=== PATIENT | female | born 1980 | race Caucasian/White ===

== ENCOUNTER 2016-05-06 22:39 | Emergency (ER) | payer SELFPAY ==
[2016-05-06] MEDS ORDERED: IBUPROFEN 600 MG TABLET PO ONE (23:23)
[2016-05-06] MEDS ORDERED: DEXAMETHASONE 4 MG TABLET PO ONE (23:37)
[2016-05-06] MEDS ORDERED: RACEPINEPHRINE HCL 2.25% NEB 0.5 ML AMPUL NEB ONE (23:37)
--- NOTE | 2016-05-06 23:39 | ER Document Report ---
ED General - General Chief Complaint: Sore Throat Stated Complaint: SORE THROAT Notes: Patient is a 35-year-old female past medical history of asthma who presents with 2 days of sore throat, laryngitis, and a feeling that her throat is swelling. States that she was working tonight at a [employer] and after the event completed she felt like she was having increasing swelling in the back of her throat. This did not respond home nebulizer treatments. Nothing worsens or symptoms. States she has not had similar symptoms in the past. Denies any respiratory distress, difficulty swallowing secretions, syncope, or difficulty breathing. Multiple sick contacts with similar upper respiratory symptoms. She has not seen her primary care physician regarding today's concerns. TRAVEL OUTSIDE OF THE [place] IN LAST 30 DAYS: No - Related Data Allergies/Adverse Reactions: seafood Allergy (Severe, Uncoded 07/16/13 20:55) tongue swelling Past Medical History - General Information source: Patient - Social History Smoking Status: Never Smoker Chew tobacco use (# tins/day): No Frequency of alcohol use: None Drug Abuse: None Lives with: Spouse/Significant other Family History: Reviewed & Not Pertinent, Other - COPD Patient has suicidal ideation: No Patient has homicidal ideation: No - Past Medical History Cardiac Medical History: Reports: Hx Hypertension Renal/ Medical History: Denies: Hx Peritoneal Dialysis Psychiatric Medical History: Reports: Hx Bipolar Disorder Past Surgical History: Reports: Hx Section - Immunizations Hx Diphtheria, Pertussis, Tetanus Vaccination: Yes Review of Systems - Review of Systems Notes: Constitutional: Negative for fever. HENT: Positive for sore throat. Eyes: Negative for visual changes. Cardiovascular: Negative for chest pain. Respiratory: Negative for shortness of breath. Gastrointestinal: Negative for abdominal pain, vomiting or diarrhea. Genitourinary: Negative for dysuria. Musculoskeletal: Negative for back pain. Skin: Negative for rash. Neurological: Negative for headaches, weakness or numbness. 10 point ROS negative except as marked above and in HPI. Physical Exam - Vital signs Vitals: Temp Pulse Resp BP Pulse Ox 98.3 F 106 H 20 147/88 H 97 05/06/16 22:58 05/06/16 22:58 05/06/16 22:58 05/06/16 22:58 05/06/16 22:58 Interpretation: Hypertensive, Tachycardic Notes: PHYSICAL EXAMINATION: GENERAL: Well-appearing, well-nourished and in no acute distress. HEAD: Atraumatic, normocephalic. EYES: Pupils equal round and reactive to light, extraocular movements intact, sclera anicteric, conjunctiva are normal. ENT: nares patent, oropharynx clear without exudates. Moist mucous membranes. NECK: Normal range of motion, supple without lymphadenopathy LUNGS: Breath sounds clear to auscultation bilaterally and equal. No wheezes rales or rhonchi. HEART: Regular rate and rhythm without murmurs ABDOMEN: Soft, nontender, normoactive bowel sounds. No guarding, no rebound. No masses appreciated. EXTREMITIES: Normal range of motion, no pitting or edema. No cyanosis. NEUROLOGICAL: No focal neurological deficits. Moves all extremities spontaneously and on command. PSYCH: Normal mood, normal affect. SKIN: Warm, Dry, normal turgor, no rashes or lesions noted. Course - Re-evaluation Re-evalutation: 05/06/16 23:38 Presentation is most consistent with a viral upper respiratory infection. Patient is overall well appearance, vitals within normal limits, well-hydrated. Patient denies any headache, neck pain, and has no evidence of meningismus on examination. Lungs are clear bilaterally. No evidence of respiratory distress. No stridor. Retropharynx is mildly erythematous. Based on clinical exam and history, I do not suspect an acute pneumonia, meningitis, or an acute encephalitis. Strep pharyngitis testing has been obtained and awaiting results. Will give a dose of Decadron and racemic epinephrine neb given patient 's sensation of throat swelling although again there is no clinical evidence of this. Her history and exam is most consistent with an upper respiratory infection with an associated laryngitis. Do not suspect a retropharyngeal abscess, Shayne angina, or peritonsillar abscess. 05/07/16 00:21 Rapid strep is negative. Patient's vitals remained within normal limits. She remains without any stridor, retractions or distress.At this time will discharge with return precautions and follow-up recommendations. Verbal discharge instructions given a the bedside and opportunity for questions given. Medication warnings reviewed. Patient is in agreement with this plan and has verbalized understanding of return precautions and the need for primary care follow-up in the next 24-72 hours. - Vital Signs Vital signs: Temp Pulse Resp BP Pulse Ox 98.7 F 82 16 123/84 97 05/07/16 00:37 05/07/16 00:37 05/07/16 00:37 05/07/16 00:37 05/07/16 00:37 Discharge - Discharge Clinical Impression: Upper respiratory infection Qualifiers: URI type: unspecified URI Qualified Code(s): J06.9 - Acute upper respiratory infection, unspecified Condition: Good Disposition: HOME, SELF-CARE Instructions: Upper Respiratory Illness ([facility]) Additional Instructions: Your symptoms are most likely due to a viral infection it should resolve over the next 7-14 days. You should take [id number] guanfacine per bottle instructions to help thin the mucus. For nasal congestion: I would recommend that you get [id number] oxymetazoline also known is afrin. Use only per bottle instructions and be sure to never use this for more than 3 days if you can develop severe rebound congestion. You may also use tylenol or ibuprofen as needed for aches and thorat discomfort. Please be sure to drink plenty of fluids and get rest. Return to the emergency department he began having difficulty breathing, chest pain, persistent vomiting, or any other symptoms that are concerning to you. Prescriptions: Albuterol Sulfate [Proair HFA Inhalation Aerosol 8.5 gm MDI] 2 puff IH Q4H PRN # 1 mdi PRN Reason: Ipratropium/Albuterol Sulfate [Duoneb 3 ml Ampul] 3 ml NEB NOW #30 vial.neb
[2016-05-07 00:38] VITALS: BP 123/84
== END 2016-05-07 00:37 | disposition home or self-care (01) ==
LOC: ER 22:39
DX: J06.9 Acute upper respiratory infection, unspecified (principal); J02.9 Acute pharyngitis, unspecified
CPT/HCPCS: 87070; 87880; 99283

== ENCOUNTER 2016-05-10 10:29 | Emergency (ER) | payer SELFPAY ==
[2016-05-10 10:34] VITALS: BP 150/85
--- NOTE | 2016-05-10 10:50 | ER Document Report ---
ED Medical Screen (RME) - General Stated Complaint: SORE THROAT, COUGH Notes: 35 yo female c/o URI s/s. requesting work note and refill on albuterol. no fever. + sore throat and cough TRAVEL OUTSIDE OF THE [place] IN LAST 30 DAYS: No - Related Data Allergies/Adverse Reactions: seafood Allergy (Severe, Uncoded 07/16/13 20:55) tongue swelling Past Medical History - Social History Family history: Hypertension - Past Medical History Cardiac Medical History: Reports: Hx Hypertension Renal/ Medical History: Denies: Hx Peritoneal Dialysis Psychiatric Medical History: Reports: Hx Bipolar Disorder Past Surgical History: Reports: Hx Section - Immunizations Hx Diphtheria, Pertussis, Tetanus Vaccination: Yes Physical Exam - Vital signs Vitals: Temp Pulse Resp BP Pulse Ox 98.2 F 71 18 150/85 H 95 05/10/16 10:34 05/10/16 10:34 05/10/16 10:34 05/10/16 10:34 05/10/16 10:34 Course - Vital Signs Vital signs: Temp Pulse Resp BP Pulse Ox 98.2 F 71 18 150/85 H 95 05/10/16 10:34 05/10/16 10:34 05/10/16 10:34 05/10/16 10:34 05/10/16 10:34
[2016-05-10] MEDS ORDERED: DEXAMETHASONE 4 MG TABLET PO ONE (11:19)
--- NOTE | 2016-05-10 11:21 | ER Document Report ---
ED Flu Like - General Chief Complaint: Cough Stated Complaint: SORE THROAT, COUGH Notes: The patient is a 35-year-old female, past medical history asthma, presents with 5 days of rhinorrhea, dry cough and hoarse voice. She was seen in the emergency room 4 days ago and given Decadron and racemic epi with relief her symptoms. She is using her DuoNeb's and is requesting a refill of her albuterol. In addition, she is requesting a work note for this week. Denies shortness of breath, sputum, chest pain, leg swelling, rash, recent travel, fevers, nausea, vomiting or abdominal pain. TRAVEL OUTSIDE OF THE [place] IN LAST 30 DAYS: No - Related Data Allergies/Adverse Reactions: prednisone Allergy (Verified 05/10/16 10:49) seafood Allergy (Severe, Uncoded 05/10/16 10:48) tongue swelling Past Medical History - General Information source: Patient - Social History Smoking Status: Never Smoker Chew tobacco use (# tins/day): No Frequency of alcohol use: None Drug Abuse: None Family History: Reviewed & Not Pertinent, Other - COPD Patient has suicidal ideation: No Patient has homicidal ideation: No - Past Medical History Cardiac Medical History: Reports: Hx Hypertension Renal/ Medical History: Denies: Hx Peritoneal Dialysis Psychiatric Medical History: Reports: Hx Bipolar Disorder Past Surgical History: Reports: Hx Section - Immunizations Hx Diphtheria, Pertussis, Tetanus Vaccination: Yes Review of Systems - Review of Systems Notes: REVIEW OF SYSTEMS: CONSTITUTIONAL: -fevers, -chills EENT: -eye pain, -difficulty swallowing, +nasal congestion CARDIOVASCULAR:-chest pain, -syncope. RESPIRATORY: +cough, -SOB GASTROINTESTINAL: -abdominal pain, -nausea, -vomiting, -diarrhea GENITOURINARY: -dysuria, -hematuria MUSCULOSKELETAL: -back pain, -neck pain SKIN: -rash or skin lesions. HEMATOLOGIC: -easy bruising or bleeding. LYMPHATIC: -swollen, enlarged glands. NEUROLOGICAL: -altered mental status or loss of consciousness, -headache, - neurologic symptoms PSYCHIATRIC: -anxiety, -depression. ALL OTHER SYSTEMS REVIEWED AND NEGATIVE. Physical Exam - Vital signs Vitals: Temp Pulse Resp BP Pulse Ox 98.2 F 71 18 150/85 H 95 05/10/16 10:34 05/10/16 10:34 05/10/16 10:34 05/10/16 10:34 05/10/16 10:34 - Notes Notes: PHYSICAL EXAMINATION: GENERAL: Well-appearing, well-nourished and in no acute distress. HEAD: Atraumatic, normocephalic. EYES: Pupils equal round and reactive to light, extraocular movements intact, sclera anicteric, conjunctiva are normal. ENT: nares patent, oropharynx clear without exudates. Moist mucous membranes. NECK: Normal range of motion, supple without lymphadenopathy LUNGS: Breath sounds clear to auscultation bilaterally and equal. No wheezes rales or rhonchi. HEART: Regular rate and rhythm without murmurs ABDOMEN: Soft, nontender, normoactive bowel sounds. No guarding, no rebound. No masses appreciated. EXTREMITIES: Normal range of motion, no pitting or edema. No cyanosis. NEUROLOGICAL: Cranial nerves grossly intact. Normal speech, normal gait. Normal sensory, motor, and reflex exams. PSYCH: Normal mood, normal affect. SKIN: Warm, Dry, normal turgor, no rashes or lesions noted. Course - Re-evaluation Re-evalutation: Patient is requesting another dose of Decadron and a refill of her albuterol. No respiratory distress. Patient appears to have a URI. Will have her follow- up with her primary care physician. - Vital Signs Vital signs: Temp Pulse Resp BP Pulse Ox 98.2 F 71 18 150/85 H 95 05/10/16 10:34 05/10/16 10:34 05/10/16 10:34 05/10/16 10:34 05/10/16 10:34 Discharge - Discharge Clinical Impression: Upper respiratory tract infection Qualifiers: URI type: unspecified URI Qualified Code(s): J06.9 - Acute upper respiratory infection, unspecified Condition: Good Disposition: HOME, SELF-CARE Additional Instructions: You were given Decadron and racemic epinephrine your last visit. You were given another dose of Decadron today. UPPER RESPIRATORY ILLNESS: You have a viral infection of the respiratory passages -- a "cold." This common infection causes nasal congestion, drainage, and often sore throat and cough. It is highly contagious. The disease usually lasts about 10 to 14 days. There is no "cure" for the viral infection -- it must run its course. If there is a complication, such as bacterial infection in the nose, sinuses, middle ear, or bronchial tubes, antibiotics may be required. The antibiotics won't affect the virus. Drink plenty of fluids. A humidifier may help. An expectorant medication or decongestant may make you more comfortable. Use acetaminophen or ibuprofen for fever or aches. See the doctor if fever persists over two days, if there is any significant worsening of your symptoms, or if you simply fail to improve as expected. BRONCHOSPASM: You have tightness in the bronchial tubes, called bronchospasm. This often occurs with bronchial infections. Allergies, inhaled chemicals, and polluted or cold air can also provoke bronchospasm. It's more likely in patients with asthma in the family. Emergency treatment of bronchospasm may include adrenaline shots or bronchodilator aerosol. You may feel lightheaded and have a rapid pulse for an hour or two. Rest and get plenty of fluids. At home, we'll treat you with a bronchodilator inhaler. Antibiotics and corticosteroids may be required for some patients. Until you recover, avoid chemical fumes, dusts, pollens, and exercising in very cold or dry air. If you smoke, stop now!! If you develop a fever, increased wheezing, chest pain, or severe shortness of breath, you should contact the doctor immediately. DECONGESTANT MEDICATION: A decongestant medicine has been prescribed. Often this medicine is combined in the same tablet with an antihistamine or expectorant. This type of medicine is helpful in treating a bad cold or sinus condition, as well as in treatment of the nasal congestion of hay fever. It is not of much benefit for lung infections. Decongestant medicines are related to stimulants. They can cause an increase in blood pressure and heart rate. Persons with heart disease and high blood pressure should not take decongestants without discussing this with the physician. If you develop palpitations, chest pain, headache, or tremors, stop the medicine and consult your physician. COUGH-SUPPRESSANT & EXPECTORANT MEDICATION: You are to use a cough medication as needed for relief of symptoms. This medicine is a combination of an expectorant (to make the mucous thinner and more easily "coughed up") and a cough suppressant (to reduce the frequency of coughing). The cough-suppressant medicine is related to narcotics. You may experience mild nausea and sleepiness. Some patients who are very sensitive to narcotics may have stomach pain from this medicine. Taking the medicine with food reduces these side effects. Do not drive or work with machinery until you know how this medicine affects you. The expectorant should have no side effects. Iodine-containing expectorants (such as organidin) should not be taken by persons with active thyroid disease unless approved by your doctor. Call the doctor if you develop shortness of breath, hives, rash, itching, lightheadedness, or severe nausea and vomiting. INHALED BRONCHODILATORS: You have received a treatment of and/or prescription for an inhaled bronchodilator -- a medication which stimulates the airways in the lung to dilate. This improves the flow of air in asthma, bronchitis, and emphysema. These medicines have some similarity to adrenaline, and can cause similar side effects: shakiness, racing heart, and a sense of nervousness. These side effects decrease with time. Contact your doctor if these side effects are severe. Do not over-use the medicine. Too-frequent use of the inhaler may make it ineffective. Call your doctor if the inhaler is not controlling your symptoms at the prescribed doses. STEROID MEDICATION: You have been given an injection of or oral medicine of the cortisone/ steroid class. This medication is used to control inflammation or allergy. Semaj t is usually only given for a short period of time, until the acute process subsides. There are usually no side effects from short-term use of cortisone-like medications. Some persons feel an increased sense of well-being and are not sleepy at bedtime. Long-term use of cortisone medications is best avoided, unless required for a severe condition. If your condition does not remit, or relapses after the course of corticosteroid medication, you should consult your physician. USE OF ACETAMINOPHEN (Tylenol): Acetaminophen may be taken for pain relief or fever control. It's much safer than aspirin, offering a wider range of "safe" dosages. It is safe during . Some brand names are Tylenol, Panadol, Datril, Anacin 3, Tempra, and Liquiprin. Acetaminophen can be repeated every four hours. The following are maximum recommended dosages: >89 pounds or adults 650 mg to 900 mg Acetaminophen can be repeated every four hours. Maximum dose not to exceed 4000 mg a day. SMOKING: If you smoke, you should stop smoking. The tar and chemicals in cigarette smoke are harmful. Smoking has been shown to cause: emphysema chronic bronchitis lung cancer mouth and throat cancer stomach and pancreas cancer premature aging defects In addition, smoking increases ear and lung infections in children of smokers. FOLLOW-UP CARE: If you have been referred to a physician for follow-up care, call the physician s office for an appointment as you were instructed or within the next two days. If you experience worsening or a significant change in your symptoms, notify the physician immediately or return to the Emergency Department at any time for re-evaluation. Prescriptions: Albuterol Sulfate [Proair HFA Inhalation Aerosol 8.5 gm MDI] 2 puff IH Q4H PRN # 1 mdi PRN Reason: Albuterol Sulfate [Albuterol Sulfate 2.5mg/3 mL] 1 vial IH Q4 PRN #30 vial PRN Reason: Forms: Return to Work
== END 2016-05-10 11:25 | disposition home or self-care (01) ==
LOC: ER 10:29
DX: J06.9 Acute upper respiratory infection, unspecified (principal); J02.9 Acute pharyngitis, unspecified; I10 Essential (primary) hypertension; Z91.013 Allergy to seafood
CPT/HCPCS: 99283

== ENCOUNTER 2017-06-23 00:44 | Emergency (ER) | payer SELFPAY ==
[2017-06-23 02:05] LABS: APPEARANCE,URINE CLEAR; BILIRUBIN,URINE NEGATIVE (NEGATIVE); COLOR,URINE STRAW; GLUCOSE, URINE NEGATIVE (NEGATIVE); KETONES,URINE NEGATIVE (NEGATIVE); URINE SPECIFIC GRAVITY 1.015
[2017-06-23 02:06] LABS: LEUKOCYTE ESTERASE,URINE NEGATIVE (NEGATIVE); NITRITE,URINE NEGATIVE (NEGATIVE); PROTEIN,URINE NEGATIVE (NEGATIVE); UROBILINOGEN,URINE NEGATIVE mg/dL (<2.0)
[2017-06-23] MEDS ORDERED: ONDANSETRON 4 MG TAB.RAPDIS PO ONE (02:08)
[2017-06-23] MEDS ORDERED: MAG HYDROX/AL HYDROX/SIMETH SUSP 30 ML UDCUP PO ONE (02:08)
--- NOTE | 2017-06-23 02:09 | ER Document Report ---
ED General - General Chief Complaint: Abdominal Pain Stated Complaint: STOMACH PAIN Time Seen by Provider: 06/23/17 02:00 Notes: Patient is a 37-year-old female who presents emergency department complaining of epigastric pain radiating into her back. She states that she has had this on and off for a couple years but feels like this episode has been going on since during the day. She states it does not get worse with any position. She feels like it gets better after she throws up. She states that she had some garlic bread and milk before the pain started this evening. She did not take anything prior to arrival for her nausea. She feels like it is related to her gallbladder. She denies any fevers or chills. One previously TRAVEL OUTSIDE OF THE [place] IN LAST 30 DAYS: No - Related Data Allergies/Adverse Reactions: prednisone Allergy (Verified 05/10/16 10:49) seafood Allergy (Severe, Uncoded 05/10/16 10:48) tongue swelling Past Medical History - Social History Smoking Status: Never Smoker Family History: Reviewed & Not Pertinent, Other - COPD - Past Medical History Cardiac Medical History: Reports: Hx Hypertension Renal/ Medical History: Denies: Hx Peritoneal Dialysis Psychiatric Medical History: Reports: Hx Bipolar Disorder Past Surgical History: Reports: Hx Section - Immunizations Hx Diphtheria, Pertussis, Tetanus Vaccination: Yes Review of Systems - Review of Systems Notes: REVIEW OF SYSTEMS: CONSTITUTIONAL : Denies fever, chills, or sweats. Denies recent illness. CARDIOVASCULAR: Denies chest pain. Denies palpitations or racing or irregular heart beat. Denies ankle edema. RESPIRATORY: Denies cough, cold, or chest congestion. Denies shortness of breath, difficulty breathing, or wheezing. GASTROINTESTINAL: Admits to stomach cramps, nausea and vomiting. denies distention. Denies diarrhea. Denies blood in vomitus, stools, or per rectum. Denies black, tarry stools. Denies constipation. GENITOURINARY: Denies difficulty urinating, painful urination, burning, frequency, blood in urine, or discharge. NEUROLOGICAL: Denies confusion or altered mental status. Denies passing out or loss of consciousness. Denies dizziness or lightheadedness. Denies headache. Denies weakness or paralysis or loss of use of either side. Denies problems with gait or speech. Denies sensory loss, numbness, or tingling. Denies seizures. PSYCHIATRIC: Denies anxiety or stress. Denies depression, suicidal ideation, or homicidal ideation. ALL OTHER SYSTEMS REVIEWED AND NEGATIVE. Dictation was performed using [employer] voice recognition software Physical Exam - Vital signs Vitals: Temp Pulse Resp BP Pulse Ox 98.4 F 96 20 131/87 H 95 06/23/17 01:06 06/23/17 01:06 06/23/17 01:06 06/23/17 01:06 06/23/17 01:06 - Notes Notes: PHYSICAL EXAM GENERAL: Alert, interacts well. HEAD: Normocephalic, atraumatic. EYES: Pupils equal, round, and reactive to light. Extraocular movements intact. ENT: Oral mucosa moist, tongue midline. NECK: Full range of motion. Supple. Trachea midline. LUNGS: Clear to auscultation bilaterally, no wheezes, rales, or rhonchi. No respiratory distress. HEART: Regular rate and rhythm. No murmurs, gallops, or rubs. ABDOMEN: Soft, obese. nondistended, epigastric tenderness and positive Liu's point. No guarding, rebound, or rigidity.. Bowel sounds present in all 4 quadrants. EXTREMITIES: Moves all 4 extremities spontaneously. No edema, radial and dorsalis pedis pulses 2/4 bilaterally. No cyanosis. NEUROLOGICAL: Alert and oriented x4. Normal speech. PSYCH: Normal affect, normal mood. SKIN: Warm, dry, normal turgor. No rashes or lesions noted. Course - Re-evaluation Re-evalutation: 06/23/17 03:56 Presentation of an overall well-appearing patient in no acute distress with complaints of nausea, vomiting. Presentation is consistent with gastritis and due to the chronicity likely esophageal reflux. She improved after Maalox, Zofran. Able to tolerate p.o. without any difficulty. Right upper quadrant ultrasound without any evidence of gallstones. Stable chemistry without evidence of elevated liver panel. patient with epigastric cramping that improved with GI cocktail and specifically no tenderness in the RLQ, LLQ, RUQ. RUQ US negative. Overall well hydrated on exam. Able to tolerate oral intake here in the emergency department. Low clinical suspicion for any acute life- threatening etiology based on exam and history including acute cholecystitis, SBO, appendicitis, nephrolithiasis, or pylonephritis. CMP without evidence of acute hepatitis or significant dehydration. Will plan for discharge at this time with return precautions and followup recommendations. - Vital Signs Vital signs: Temp Pulse Resp BP Pulse Ox 98.4 F 89 18 138/89 H 97 06/23/17 01:06 06/23/17 04:44 06/23/17 04:44 06/23/17 04:44 06/23/17 04:44 - Laboratory Result Diagrams: 06/23/17 02:15 06/23/17 02:15 Laboratory results interpreted by me: 06/23/17 06/23/17 06/23/17 01:45 02:15 02:15 Seg Neutrophils % 80.5 H Lymphocytes % 9.6 L Absolute Neutrophils 8.5 H Chloride 108 H Glucose 118 H Urine Blood SMALL H - Diagnostic Test Radiology reviewed: Reports reviewed Discharge - Discharge Clinical Impression: Epigastric pain Vomiting Qualifiers: Vomiting type: unspecified Vomiting Intractability: intractable Nausea presence : with nausea Qualified Code(s): R11.2 - Nausea with vomiting, unspecified Condition: Good Disposition: HOME, SELF-CARE Additional Instructions: Your symptoms appear to be most consistent with stomach or upper intestinal irritation. Please begin taking famotidine 40 mg in the morning and 40 mg at night. This medicine can be purchased directly [id number]. You may also take medicine such as Pepto-Bismol or Tums to assist with your pain. Please return to emergency department immediately if you have worsening of your pain, shortness of breath, vomiting, become unable to exert yourself due to pain or difficulty breathing, you pass out, or have any pain that radiates into your arms, jaw, or back. Please also return if you have any additional symptoms that are concerning to you. Prescriptions: Omeprazole Magnesium [Prilosec Otc] 20 mg PO DAILY #30 tablet. Ondansetron [Zofran Odt 4 mg Tablet] 1 - 2 tab PO Q4H PRN #15 tab.rapdis PRN Reason: For Nausea/Vomiting Referrals: [facility] [Provider Group] - Follow up in 1 week
[2017-06-23 02:33] LABS: ABSOLUTE EOSINOPHILS # (AUTO) 0.2 10^3/uL (0.0-0.6); ABSOLUTE MONOCYTES (AUTO) 0.8 10^3/uL (0.1-1.4); ABSOLUTE NEUT (AUTO) 8.5 10^3/uL (1.7-8.2); BASOPHILS % (AUTO) 0.3 % (0-2); EOSINOPHILS % (AUTO) 1.9 % (0-6); HEMATOCRIT 42.1 % (36.0-47.0); HEMOGLOBIN 14.4 g/dL (12.0-15.5); LYMPHOCYTES % (AUTO) 9.6 % (13-45); MEAN CORPUSCULAR HEMOGLOBIN 30.7 pg (27.0-33.4); MEAN CORPUSCULAR HGB CONC 34.1 g/dL (32.0-36.0); MEAN CORPUSCULAR VOLUME 90 fl (80-97); MONOCYTES % (AUTO) 7.7 % (3-13); PLATELET COUNT 341 10^3/uL (150-450); RED BLOOD COUNT 4.68 10^6/uL (3.72-5.28); SEGMENTED NEUTROPHILS % (AUTO) 80.5 % (42-78); TOTAL CELLS COUNTED % (AUTO) 100 %; WHITE BLOOD COUNT 10.5 10^3/uL (4.0-10.5)
[2017-06-23 02:56] LABS: ALANINE AMINOTRANSFERASE 34 U/L (9-52); ALBUMIN 4.4 g/dL (3.5-5.0); ALKALINE PHOSPHATASE 61 U/L (38-126); ANION GAP 13 (5-19); ASPARTATE AMINO TRANSFERASE 17 U/L (14-36); BILIRUBIN,DIRECT 0.1 mg/dL (0.0-0.4); BILIRUBIN,TOTAL 0.5 mg/dL (0.2-1.3); BLOOD UREA NITROGEN 10 mg/dL (7-20); CALCIUM 9.9 mg/dL (8.4-10.2); CARBON DIOXIDE 23 mmol/L (22-30); CHLORIDE 108 mmol/L (98-107); GLUCOSE 118 mg/dL (75-110); LIPASE 185.7 U/L (23-300); POTASSIUM 3.9 mmol/L (3.6-5.0); SODIUM 143.6 mmol/L (137-145); TOTAL PROTEIN 6.9 g/dL (6.3-8.2)
--- NOTE | 2017-06-23 03:09 | RADIOLOGY REPORT (SQ) ---
EXAM DESCRIPTION: U/S ABDOMEN LIMITED W/O DOP CLINICAL HISTORY: 37 years, Female, RUQ pain, n/v COMPARISON: None. LIMITATIONS: None. FINDINGS: Gallbladder, negative sonographic Liu's test, hepatobiliary ductal system with 0.4-0.6 cm diameter common bile duct, liver, pancreas, aorta, and 12 cm right kidney appear otherwise unremarkable. No ascites. IMPRESSION: No acute findings.
[2017-06-23] MEDS ORDERED: LIDOCAINE 2% VISCOUS SOLN 20 ML UDCUP PO ONE (03:21)
[2017-06-23] MEDS ORDERED: METOCLOPRAMIDE HCL INJ/PF 10 MG/2 ML SDV IV ONE (03:22)
[2017-06-23] MEDS ORDERED: METOCLOPRAMIDE HCL ORAL SOLN 10 MG/10 ML UDCUP PO ONE (04:25)
[2017-06-23 04:45] VITALS: BP 138/89
== END 2017-06-23 04:44 | disposition home or self-care (01) ==
LOC: ER 00:44
DX: R10.13 Epigastric pain (principal); R11.2 Nausea with vomiting, unspecified; I10 Essential (primary) hypertension; Z88.8 Allergy status to other drugs, medicaments and biological substances; Z91.013 Allergy to seafood
CPT/HCPCS: 99284; 36415; 83690; 85025; 80053; 81001; 76705; S0119; J3490

== ENCOUNTER 2018-03-13 23:27 | Emergency (ER) | payer SELFPAY ==
[2018-03-13 23:33] VITALS: BP 148/92
[2018-03-14] MEDS ORDERED: ONDANSETRON ODT 4 MG TAB (6 TAB/ER DISP) PO PRN (00:13)
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
== END 2018-03-14 00:39 | disposition home or self-care (01) ==
LOC: ER 23:27
DX: S06.0X0A Concussion without loss of consciousness, initial encounter (principal); Y08.09XA Assault by strike by other specified type of sport equipment, initial encounter; R11.0 Nausea; R51 Headache; H53.149 Visual discomfort, unspecified; M79.652 Pain in left thigh; I10 Essential (primary) hypertension; Z88.8 Allergy status to other drugs, medicaments and biological substances; Z91.013 Allergy to seafood
CPT/HCPCS: 99283

== ENCOUNTER 2018-03-16 15:48 | Emergency (ER) | payer SELFPAY ==
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
[2018-03-16 16:37] LABS: ABSOLUTE EOSINOPHILS # (AUTO) 0.2 10^3/uL (0.0-0.6); ABSOLUTE LYMPHOCYTES (AUTO) 1.8 10^3/uL (0.5-4.7); ABSOLUTE MONOCYTES (AUTO) 0.7 10^3/uL (0.1-1.4); ABSOLUTE NEUT (AUTO) 4.1 10^3/uL (1.7-8.2); BASOPHILS % (AUTO) 0.5 % (0-2); EOSINOPHILS % (AUTO) 2.5 % (0-6); HEMATOCRIT 40.5 % (36.0-47.0); HEMOGLOBIN 13.6 g/dL (12.0-15.5); LYMPHOCYTES % (AUTO) 26.8 % (13-45); MEAN CORPUSCULAR HEMOGLOBIN 30.7 pg (27.0-33.4); MEAN CORPUSCULAR HGB CONC 33.5 g/dL (32.0-36.0); MEAN CORPUSCULAR VOLUME 92 fl (80-97); MONOCYTES % (AUTO) 10.5 % (3-13); PLATELET COUNT 334 10^3/uL (150-450); RED BLOOD COUNT 4.42 10^6/uL (3.72-5.28); RED CELL DISTRIBUTION WIDTH 13.4 % (11.5-14.0); SEGMENTED NEUTROPHILS % (AUTO) 59.7 % (42-78); TOTAL CELLS COUNTED % (AUTO) 100 %; WHITE BLOOD COUNT 6.9 10^3/uL (4.0-10.5)
[2018-03-16 16:43] LABS: APPEARANCE,URINE SLIGHTLY-CLOUDY; BILIRUBIN,URINE NEGATIVE (NEGATIVE); COLOR,URINE YELLOW; GLUCOSE, URINE NEGATIVE (NEGATIVE); KETONES,URINE NEGATIVE (NEGATIVE); LEUKOCYTE ESTERASE,URINE NEGATIVE (NEGATIVE); NITRITE,URINE NEGATIVE (NEGATIVE); PROTEIN,URINE NEGATIVE (NEGATIVE); URINE SPECIFIC GRAVITY 1.013; UROBILINOGEN,URINE NEGATIVE mg/dL (<2.0)
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
[2018-03-16 16:51] LABS: ALANINE AMINOTRANSFERASE 27 U/L (9-52); ALBUMIN 4.3 g/dL (3.5-5.0); ALKALINE PHOSPHATASE 64 U/L (38-126); ANION GAP 10 (5-19); ASPARTATE AMINO TRANSFERASE 18 U/L (14-36); BILIRUBIN,DIRECT 0.2 mg/dL (0.0-0.4); BILIRUBIN,TOTAL 0.5 mg/dL (0.2-1.3); BLOOD UREA NITROGEN 9 mg/dL (7-20); CALCIUM 9.7 mg/dL (8.4-10.2); CARBON DIOXIDE 23 mmol/L (22-30); CHLORIDE 107 mmol/L (98-107); GLUCOSE 91 mg/dL (75-110); POTASSIUM 3.9 mmol/L (3.6-5.0); SODIUM 140.1 mmol/L (137-145)
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
[2018-03-16] MEDS ORDERED: ACETAMINOPHEN 325 MG TABLET PO ONE (18:04)
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
[2018-03-16 18:34] VITALS: BP 131/83
== END 2018-03-16 18:31 | disposition home or self-care (01) ==
LOC: ER 15:48
DX: F07.81 Postconcussional syndrome (principal); R51 Headache; R30.0 Dysuria; R53.83 Other fatigue; M54.2 Cervicalgia; M54.9 Dorsalgia, unspecified; J45.909 Unspecified asthma, uncomplicated
CPT/HCPCS: 36415; 70450; 72125; 80053; 81001; 81025; 85025; 99284

== ENCOUNTER 2018-06-21 09:20 | Emergency (ER) | payer MEDICAID ==
[2018-06-21 09:36] VITALS: BP 131/84
[2018-06-21] MEDS ORDERED: ACETAMINOPHEN 325 MG TABLET PO ONE (09:57)
--- NOTE | 2018-06-21 10:00 | ER Document Report ---
HPI - HPI Patient complains to provider of: laceration Time Seen by Provider: 06/21/18 09:44 Onset: Just prior to arrival Onset/Duration: Sudden Quality of pain: Burning Severity: Moderate Pain Level: 4 Context: 38-year-old female presents to ED for complaint of laceration between the fourth and fifth finger on the right hand when a dish chip cut her hand from a plate. She states her last tetanus shot was 06/11/2018. She is alert oriented respirations regular and unlabored speaking in full sentences walks with a even steady gait. Associated Symptoms: Other - Laceration between the fourth and fifth finger on the right hand Exacerbated by: Denies Relieved by: Denies Similar symptoms previously: Yes - ROS ROS below otherwise negative: Yes - CONSTITUTIONAL Constitutional: DENIES: Fever, Chills - EENT EENT: DENIES: Sore Throat, Ear Pain, Nasal Drainage-Clear, Nasal Drainage- Purulent, Congestion, Eye problems - NEURO Neurology: DENIES: Headache, Weakness, Vision blurred, Dizzinesss / Vertigo - CARDIOVASCULAR Cardiovascular: DENIES: Chest pain - RESPIRATORY Respiratory: DENIES: Trouble Breathing, Coughing - GASTROINTESTINAL Gastrointestinal: DENIES: Abdominal Pain, Nausea, Patient vomiting, Diarrhea, Constipation, Black / Bloody Stools - URINARY Urinary: DENIES: Dysuria, Urgency, Frequency - REPRODUCTIVE Reproductive: DENIES: : - MUSCULOSKELETAL Musculoskeletal: REPORTS: Extremity pain - Between the fourth and fifth f. DENIES: Back Pain, Neck Pain, Swelling - DERM Skin Color: Normal Skin Problems: Laceration - Between the fourth and fifth finger right hand Past Medical History - General Information source: Patient - Social History Smoking Status: Never Smoker Cigarette use (# per day): No Chew tobacco use (# tins/day): No Smoking Education Provided: No Frequency of alcohol use: Rare Drug Abuse: None Occupation: Unemployed at this time Lives with: Family Family History: Reviewed & Not Pertinent, Other - COPD Patient has suicidal ideation: No Patient has homicidal ideation: No - Past Medical History Cardiac Medical History: Reports: Hx Hypertension Pulmonary Medical History: Reports: Hx Asthma EENT Medical History: Reports: None Neurological Medical History: Reports: None Endocrine Medical History: Reports: None Renal/ Medical History: Reports: None Malignancy Medical History: Reports: None GI Medical History: Reports: None Musculoskeletal Medical History: Reports None Skin Medical History: Reports None Psychiatric Medical History: Reports: Hx Bipolar Disorder, Hx Post Traumatic Stress Disorder Traumatic Medical History: Reports: None Infectious Medical History: Reports: None Past Surgical History: Reports: Hx Section - Immunizations Immunizations up to date: Yes Hx Diphtheria, Pertussis, Tetanus Vaccination: Yes - 06/11/2018 Vertical Provider Document - CONSTITUTIONAL Agree With Documented VS: Yes Exam Limitations: No Limitations General Appearance: WD/WN, No Apparent Distress - INFECTION CONTROL TRAVEL OUTSIDE OF THE [place] IN LAST 30 DAYS: No - HEENT HEENT: Atraumatic, Normocephalic, PERRLA, Pharyngeal Tenderness - NECK Neck: Normal Inspection - RESPIRATORY Respiratory: Breath Sounds Normal, No Respiratory Distress, Chest Non-Tender - CARDIOVASCULAR Cardiovascular: Regular Rate, Regular Rhythm, No Murmur - GI/ABDOMEN Gastrointestinal: Abdomen Soft, Abdomen Non-Tender, No Organomegaly, Normal Bowel Sounds - MUSCULOSKELETAL/EXTREMETIES Musculoskeletal/Extremeties: MAEW, FROM, Tender - Small laceration between fourth and fifth finger right hand - NEURO Level of Consciousness: Awake Motor/Sensory: No Motor Deficit, No Sensory Deficit, No Pronator Drift - DERM Integumentary: Laceration - 1/2 cm laceration between fourth and fifth finger right hand I do not using Course - Vital Signs Vital signs: Temp Pulse Resp BP Pulse Ox 97.9 F 77 18 131/84 H 98 06/21/18 09:34 06/21/18 09:34 06/21/18 09:34 06/21/18 09:34 06/21/18 09:34 Procedures - Laceration/Wound Repair Right Hand Time completed: 10:04 Wound length (cm): 0.5 Wound's Depth, Shape: Superficial Laceration pre-procedure: Sterile PPE donned, Shur-Clens applied Anesthetic type: Other - 0 Volume Anesthetic (mLs): 0 Wound explored: Clean, No foreign body removed Irrigated w/ Saline (mLs): 80 Wound Debrided: Minimal Wound Repaired With: Dermabond Post-procedure NV exam normal: Yes Complications: No Discharge - Discharge Clinical Impression: Laceration of right hand Qualifiers: Encounter type: initial encounter Foreign body presence: without foreign body Qualified Code(s): S61.411A - Laceration without foreign body of right hand, initial encounter Condition: Stable Disposition: HOME, SELF-CARE Instructions: Family Physicians / Practices Additional Instructions: Hand Laceration A laceration on the hand can present special problems. It may be difficult to keep the wound dry. Motion of the fingers can disturb the healing edges. Your work may involve exposure to damaging chemicals or water. Keep the wound clean and dry. If you can't keep the cut dry, undisturbed, and free of chemical exposure, please discuss this with the doctor. If any water or chemical gets onto the dressing, remove it, blot the wound dry, then apply a fresh bandage. Dressings should be changed every day. If any signs of infection occur (swelling, redness, increasing tenderness, red streaks, tender lumps in the armpit, or fever), see the doctor immediately. Dermabond (Skin Adhesive Closure) Skin adhesive (such as Dermabond) is a quick-drying glue that remains slightly flexible while it holds wound edges together. It can substitute for stitches on some cuts. The film will usually fall off the skin after 5 to 10 days. Keep the wound area clean and dry. Do not soak or scrub the wound. Don't swim. You can shower briefly after 24 hours. Gently blot the area dry with a soft towel. Don't apply ointments. If there is a dressing, change it immediately if it gets wet. Do not place tape directly over the adhesive film, because the tape may pull the film off your skin as you remove it. Don't bump the wound area. If there's risk of injury, keep the area well- padded. Avoid stretching of the skin. Do not scratch or pick at the adhesive film. Avoid prolonged exposure to sunlight or tanning lamps. Return if there is increasing pain, swelling, redness, or drainage, or if the wound edges seem to open or separate. Acetaminophen Acetaminophen may be taken for pain relief or fever control. It's much safer than aspirin, offering a wider range of "safe" dosages. It is safe during . Some brand names are Tylenol, Panadol, Datril, Anacin 3, Tempra, and Liquiprin. Acetaminophen can be repeated every four hours. The following are maximum recommended dosages: WEIGHT Dose Drops Elixir Chewable(80mg) (LBS.) drprs=droppers tsp=teaspoon 6 40 mg .4 ml (1/2) 6-11 80 mg .8 ml (full) 1/2 tsp 1 tab 12-16 120 mg 1 1/2 drprs 3/4 tsp 1 1/2 tabs 17-23 160 mg 2 drprs 1 tsp 2 tabs 24-30 240 mg 3 drprs 1 1/2 tsp 3 tabs 30-35 320 mg 2 tsp 4 tabs 36-41 360 mg 2 1/4 tsp 4 1/2 tabs 42-47 400 mg 2 1/2 tsp 5 tabs 48-53 480 mg 3 tsp 6 tabs 54-59 520 mg 3 1/4 tsp 6 1/2 tabs 60-64 560 mg 3 1/2 tsp 7 tabs 65-70 600 mg 3 3/4 tsp 7 1/2 tabs 71-76 640 mg 4 tsp 8 tabs 77-82 720 mg 4 1/2 tsp 9 tabs 83-88 800 mg 5 tsp 10 tabs >89 pounds or adults 650 mg to 900 mg Acetaminophen can be repeated every four hours. Maximum daily dose not to exceed 4000 mg. These maximum recommended dosages are slightly higher than the dosages written on the product container, but these dosages are very safe and well below the toxic dosage for acetaminophen. Ibuprofen Ibuprofen is an excellent, safe drug for pain control. In addition, it has potent antiinflammatory effects which are beneficial, especially in the treatment of injuries, arthritis, or tendonitis. It's best to take ibuprofen with food. Persons with ulcer disease or allergy to aspirin should notify their physician of this before taking ibuprofen. Take the medication exactly as prescribed. Don't take additional doses unless instructed to do so by your doctor. If you develop wheezing, shortness of breath, hives, faintness, stomach pain, vomiting, or dark black stools, return for re-evaluation at once. FOLLOW-UP CARE: If you have been referred to a physician for follow-up care, call the physicians office for an appointment as you were instructed or within the next two days. If you experience worsening or a significant change in your symptoms, notify the physician immediately or return to the Emergency Department at any time for re-evaluation. Forms: Elevated Blood Pressure Referrals: DYANA CANNON MD [Primary Care Provider] - Follow up as needed
== END 2018-06-21 10:17 | disposition home or self-care (01) ==
LOC: ER 09:20
DX: S61.411A Laceration without foreign body of right hand, initial encounter (principal); W26.8XXA Contact with other sharp object(s), not elsewhere classified, initial encounter; I10 Essential (primary) hypertension; Y93.G1 Activity, food preparation and clean up; J45.909 Unspecified asthma, uncomplicated
CPT/HCPCS: 99282; 12001; J3490

== ENCOUNTER → 2018-08-28 | Outpatient (CLI) | payer MEDICAID ==
--- NOTE | 2018-08-28 15:06 | RADIOLOGY REPORT (SQ) ---
EXAM DESCRIPTION: CHEST PA/LATERAL COMPLETED DATE/TIME: 08/28/2018 2:44 pm REASON FOR STUDY: COUGH COMPARISON: 07/29/2012 EXAM PARAMETERS: NUMBER OF VIEWS: two views TECHNIQUE: Digital Frontal and Lateral radiographic views of the chest acquired. RADIATION DOSE: NA LIMITATIONS: none FINDINGS: LUNGS AND PLEURA: No opacities, masses or pneumothorax. No pleural effusion. MEDIASTINUM AND HILAR STRUCTURES: No masses or contour abnormalities. HEART AND VASCULAR STRUCTURES: Heart normal size. No evidence for failure. BONES: No acute findings. HARDWARE: None in the chest. OTHER: No other significant finding. IMPRESSION: NO SIGNIFICANT RADIOGRAPHIC FINDING IN THE CHEST. TECHNICAL DOCUMENTATION: JOB ID: [id number] [employer]- All Rights Reserved Reading location - IP/workstation name: [email or web address]
== END ==
LOC: OD 14:36
PROVIDERS: ATTEND Nurse Practitioner Family
DX: R05 Cough (principal); R30.0 Dysuria
CPT/HCPCS: 71046; 87086

== ENCOUNTER → 2018-09-20 | Outpatient (CLI) | payer MEDICAID ==
--- NOTE | 2018-09-20 13:33 | RADIOLOGY REPORT (SQ) ---
EXAM DESCRIPTION: WRIST RIGHT 3 VIEWS COMPLETED DATE/TIME: 09/20/2018 1:10 pm REASON FOR STUDY: RIGHT WRIST PAIN M25.531 PAIN IN RIGHT WRIST COMPARISON: None. NUMBER OF VIEWS: Three views. TECHNIQUE: AP, lateral, and oblique radiographic images acquired of the right wrist. LIMITATIONS: None. FINDINGS: MINERALIZATION: Normal. BONES: No acute fracture or dislocation. No worrisome bone lesions. Normal alignment. SOFT TISSUES: No soft tissue swelling. No foreign body. OTHER: No other significant finding. IMPRESSION: 1. NEGATIVE STUDY OF THE RIGHT WRIST. TECHNICAL DOCUMENTATION: JOB ID: [id number] [employer]- All Rights Reserved Reading location - IP/workstation name: [email or web address]
== END ==
LOC: OD 12:54
PROVIDERS: ATTEND Nurse Practitioner Family
DX: M25.531 Pain in right wrist (principal)

== ENCOUNTER 2018-12-04 12:25 | Emergency (ER) | payer SELFPAY ==
--- NOTE | 2018-12-04 13:28 | ER Document Report ---
ED Medical Screen (RME) - General Chief Complaint: Hip Pain Stated Complaint: BACK/HIP/LEG PAIN Time Seen by Provider: 12/04/18 13:21 Primary Care Provider: ROSE LANE FNP-C [Primary Care Provider] - Follow up as needed Mode of Arrival: Wheelchair Information source: Patient Notes: This 38-year-old female presents emergency department with complaints of right hip pain right leg swelling today. Reports history of sciatica. Reports he has had this pain for a while. Patient reports she is taken over [id number] meds that she can take without relief of symptoms. Reports that she took a shower this morning and almost passed out due to the pain. Patient right flank very tender to palpate. Patient reports it always hurts. Patient declines motrin. I have greeted and performed a rapid initial assessment of this patient. A comprehensive ED assessment and evaluation of the patient, analysis of test results and completion of the medical decision making process will be conducted by additional ED providers. Dictation of this chart was performed using voice recognition software; therefore, there may be some unintended grammatical errors. TRAVEL OUTSIDE OF THE [place] IN LAST 30 DAYS: No - Related Data Allergies/Adverse Reactions: iodine Allergy (Verified 12/04/18 12:29) latex Allergy (Verified 12/04/18 12:29) prednisone Allergy (Verified 12/04/18 12:29) seafood Allergy (Severe, Uncoded 12/04/18 12:29) tongue swelling Past Medical History - Social History Frequency of alcohol use: Rare Drug Abuse: None Family history: Hypertension - Past Medical History Cardiac Medical History: Reports: Hx Hypertension Pulmonary Medical History: Reports: Hx Asthma Renal/ Medical History: Denies: Hx Peritoneal Dialysis Psychiatric Medical History: Reports: Hx Bipolar Disorder, Hx Post Traumatic Stress Disorder Past Surgical History: Reports: Hx Section - Immunizations Immunizations up to date: Yes Hx Diphtheria, Pertussis, Tetanus Vaccination: Yes - 06/11/2018 Physical Exam - Vital signs Vitals: Temp Pulse Resp BP Pulse Ox 97.6 F 62 18 125/65 96 12/04/18 12:39 12/04/18 12:39 12/04/18 12:39 12/04/18 12:39 12/04/18 12:39 Course - Vital Signs Vital signs: Temp Pulse Resp BP Pulse Ox 97.6 F 62 18 125/65 96 12/04/18 12:39 12/04/18 12:39 12/04/18 12:39 12/04/18 12:39 12/04/18 12:39 Doctor's Discharge - Discharge Referrals: ROSE LANE, [employer] OPERATOR-C [Primary Care Provider] - Follow up as needed
--- NOTE | 2018-12-04 14:35 | RADIOLOGY REPORT (SQ) ---
EXAM DESCRIPTION: HIP RIGHT AP/LATERAL COMPLETED DATE/TIME: 12/04/2018 2:20 pm REASON FOR STUDY: hip pain COMPARISON: None. NUMBER OF VIEWS: One view. TECHNIQUE: Frog-leg view of the right hip. LIMITATIONS: None. FINDINGS: MINERALIZATION: Normal. RIGHT HIP: No fracture or dislocation. ISCHIUM: The ilioischial and iliopectineal lines are intact. OTHER: Osteophytes at the superolateral aspect of the acetabulum. IMPRESSION: No acute fracture or dislocation of the right hip based on a single lateral view. TECHNICAL DOCUMENTATION: JOB ID: [id number] [employer]- All Rights Reserved Reading location - IP/workstation name: [email or web address]
[2018-12-04] MEDS ORDERED: KETOROLAC TROMETHAMINE 60 MG/2 ML SDV IM ONE (14:58)
[2018-12-04] MEDS ORDERED: LIDOCAINE 5% (700 MG) TRANSDERMAL ADH..PATCH TP ONE (14:58)
[2018-12-04] MEDS ORDERED: DEXAMETHASONE SOD PHOS INJ 10 MG/1 ML VIAL IM ONE (14:58)
[2018-12-04 15:02] LABS: ABSOLUTE EOSINOPHILS # (AUTO) 0.2 10^3/uL (0.0-0.6); ABSOLUTE LYMPHOCYTES (AUTO) 1.7 10^3/uL (0.5-4.7); ABSOLUTE MONOCYTES (AUTO) 0.6 10^3/uL (0.1-1.4); ABSOLUTE NEUT (AUTO) 4.1 10^3/uL (1.7-8.2); BASOPHILS % (AUTO) 0.5 % (0-2); EOSINOPHILS % (AUTO) 3.6 % (0-6); HEMATOCRIT 40.3 % (36.0-47.0); HEMOGLOBIN 13.7 g/dL (12.0-15.5); LYMPHOCYTES % (AUTO) 25.6 % (13-45); MEAN CORPUSCULAR HEMOGLOBIN 30.8 pg (27.0-33.4); MEAN CORPUSCULAR VOLUME 91 fl (80-97); MONOCYTES % (AUTO) 8.2 % (3-13); PLATELET COUNT 323 10^3/uL (150-450); RED BLOOD COUNT 4.45 10^6/uL (3.72-5.28); RED CELL DISTRIBUTION WIDTH 13.1 % (11.5-14.0); SEGMENTED NEUTROPHILS % (AUTO) 62.1 % (42-78); TOTAL CELLS COUNTED % (AUTO) 100 %; WHITE BLOOD COUNT 6.7 10^3/uL (4.0-10.5)
[2018-12-04] MEDS ORDERED: HYDROCODONE/ACETAMINOPHEN 5-325 MG (6 TAB/ER DISP) PO PRN (15:04)
--- NOTE | 2018-12-04 15:04 | ER Document Report ---
ED General - General Chief Complaint: Hip Pain Stated Complaint: BACK/HIP/LEG PAIN Time Seen by Provider: 12/04/18 13:21 Primary Care Provider: ROSE LANE FNP-C [Primary Care Provider] - Follow up as needed Mode of Arrival: Wheelchair TRAVEL OUTSIDE OF THE [place] IN LAST 30 DAYS: No - HPI Notes: Patient is a 38-year-old female with history of rheumatoid arthritis, sciatica, chronic low back pain who presents complaining of right lateral hip pain, right low back pain, and flareup of her sciatica that began over the past couple weeks. Patient states that she has had flareups like this in the past. Patient states that standing for prolonged periods is worsening her symptoms. Bending and twisting makes the pain worse as well. She is eating and drinking without any difficulties. She is urinating normally and having normal bowel movements. She has not had any injections or procedures to her lower back. Denies any IV drug abuse. No other concerns or complaints. Denies any headache, fever, head injury, neck pain, URI, sore throat, chest pain, palpitations, syncope, cough, shortness of breath, wheeze, dyspnea, abdominal pain, nausea/vomiting/diarrhea, urinary retention, dysuria, hematuria, loss of control of bowel or bladder, numb ness/tingling, saddle anesthesia, muscle paralysis/weakness, or rash. - Related Data Allergies/Adverse Reactions: iodine Allergy (Verified 12/04/18 12:29) latex Allergy (Verified 12/04/18 12:29) prednisone Allergy (Verified 12/04/18 12:29) seafood Allergy (Severe, Uncoded 12/04/18 12:29) tongue swelling Past Medical History - General Information source: Patient - Social History Smoking Status: Never Smoker Frequency of alcohol use: Rare Drug Abuse: None Family History: Reviewed & Not Pertinent, Other - COPD Patient has suicidal ideation: No Patient has homicidal ideation: No - Past Medical History Cardiac Medical History: Reports: Hx Hypertension Pulmonary Medical History: Reports: Hx Asthma Renal/ Medical History: Denies: Hx Peritoneal Dialysis Psychiatric Medical History: Reports: Hx Bipolar Disorder, Hx Post Traumatic Stress Disorder Past Surgical History: Reports: Hx Section - Immunizations Immunizations up to date: Yes Hx Diphtheria, Pertussis, Tetanus Vaccination: Yes - 06/11/2018 Review of Systems - Review of Systems -: Yes All other systems reviewed and negative Physical Exam - Vital signs Vitals: Temp Pulse Resp BP Pulse Ox 97.6 F 62 18 125/65 96 12/04/18 12:39 12/04/18 12:39 12/04/18 12:39 12/04/18 12:39 12/04/18 12:39 - Notes Notes: PHYSICAL EXAMINATION: GENERAL: Well-appearing, well-nourished and in no acute distress. LUNGS: Breath sounds clear to auscultation bilaterally and equal. No wheezes rales or rhonchi. HEART: Regular rate and rhythm without murmurs, rubs, gallops. ABDOMEN: Soft, nontender, nondistended abdomen. No guarding, no rebound. Normal bowel sounds present. No CVA tenderness bilaterally. No pulsatile mass Musculoskeletal: LE's b/l: FROM to passive/active. Strength 5+/5. No deficits noted. No bony tenderness of extremities. Back: FROM to passive/active. Strength 5+/5. No vertebral point tenderness, stepoffs, or deformities. No other bony tenderness, erythema, swelling, or ecchymosis. SLR negative b/l. + tenderness to the L-paraspinal mm Rt. Mild spasming. + Rt SI jt tenderness. + reproducible tenderness to the rt troch bursa area. No foot drop Extremities: No cyanosis, clubbing, or edema b/l. Peripheral pulses 2+. Capillary refill less than 2 seconds. NEUROLOGICAL: Normal speech, limping gait. Normal sensory, motor exams. Reflexes 2+ b/l. PSYCH: Normal mood, normal affect. SKIN: Warm, Dry, normal turgor, no rashes or lesions noted. Course - Re-evaluation Re-evalutation: 12/04/18 Patient is an afebrile, well-hydrated, 38-year-old female who presents to the ED with acute on chronic low back pain, Rt sacroiliitis, and rt Troch bursitis. Vitals are acceptable. PE is otherwise unremarkable for any focal neurological deficits. X-ray was unremarkable for any acute pathology. Patient was given Decadron, Toradol, norco dispense, and Lidoderm patch. She has no significant tachycardia, tachypnea, or hypoxia. She is nontoxic-appearing and is tolerating p.o. without difficulties. There are no signs of infection. No other red flag symptoms noted. No other labs or imaging warranted at this time based on H&P. Low suspicion for any meningitis, fracture, expanding/ruptured AAA, cauda equina syndrome, epidural mass lesion/abscess, herniated disc causing severe spinal stenosis, or other systemic infection at this time. Patient is aware that her condition can change from initial presentation and that she needs monitor symptoms closely for any acute changes. I will send her home with a prescription for motrin 800mg. Conservative measures otherwise for symptoms. Recheck with your PCM in 3-5 days. Consider consult with orthopedic/physical therapy. Return to the ED with any worsening/concerning symptoms otherwise as reviewed discharge. Patient is in agreement. - Vital Signs Vital signs: Temp Pulse Resp BP Pulse Ox 97.6 F 62 18 125/65 96 12/04/18 12:39 12/04/18 12:39 12/04/18 12:39 12/04/18 12:39 12/04/18 12:39 - Laboratory Result Diagrams: 12/04/18 14:25 12/04/18 14:25 Discharge - Discharge Clinical Impression: Acute exacerbation of chronic low back pain, Sacroiliitis, Trochanteric bursitis, right hip Condition: Stable Disposition: HOME, SELF-CARE Instructions: Stretching Exercises for the Back ([facility]), Low Back Pain ([facility]) Additional Instructions: Rest, Ice Tylenol/ibuprofen as needed Light stretches daily Strength exercises as able Moist heat and massage may help F/u with your PCP in 3-5 days for a recheck Consider consult(s) with Orthopedics/physical therapy for ongoing/worsening symptoms Return to the ED with any worsening symptoms and/or development of fever, headache, chest pain, palpitations, syncope, shortness of breath, trouble breathing, abdominal pain, n/v/d, blood in stool/urine, loss of control of bowel/bladder, urinary retention, muscle weakness/paralysis, saddle anesthesia, numbness/tingling, or other worsening symptoms that are concerning to you. Prescriptions: Ibuprofen [Motrin 800 mg Tablet] 800 mg PO Q8H PRN #20 tab PRN Reason: Forms: Return to Work Referrals: ROSE LANE FNP-C [Primary Care Provider] - Follow up as needed [facility] [Provider Group] - Follow up as needed
[2018-12-04 15:05] LABS: APPEARANCE,URINE SLIGHTLY-CLOUDY; BILIRUBIN,URINE NEGATIVE (NEGATIVE); COLOR,URINE YELLOW; GLUCOSE, URINE NEGATIVE (NEGATIVE); KETONES,URINE NEGATIVE (NEGATIVE); LEUKOCYTE ESTERASE,URINE TRACE (NEGATIVE); NITRITE,URINE NEGATIVE (NEGATIVE); PROTEIN,URINE NEGATIVE (NEGATIVE); URINE SPECIFIC GRAVITY 1.018; UROBILINOGEN,URINE NEGATIVE mg/dL (<2.0)
[2018-12-04 15:35] LABS: ALBUMIN 4.2 g/dL (3.5-5.0); ALKALINE PHOSPHATASE 51 U/L (38-126); ANION GAP 7 (5-19); ASPARTATE AMINO TRANSFERASE 19 U/L (14-36); BILIRUBIN,TOTAL 0.7 mg/dL (0.2-1.3); BLOOD UREA NITROGEN 8 mg/dL (7-20); CALCIUM 9.6 mg/dL (8.4-10.2); CARBON DIOXIDE 27 mmol/L (22-30); CHLORIDE 106 mmol/L (98-107); GLUCOSE 95 mg/dL (75-110); POTASSIUM 4.1 mmol/L (3.6-5.0); TOTAL PROTEIN 6.9 g/dL (6.3-8.2)
[2018-12-04 16:26] VITALS: BP 133/69
== END 2018-12-04 16:28 | disposition home or self-care (01) ==
LOC: ER 12:25
DX: M54.5 Low back pain (principal); G89.29 Other chronic pain; M46.1 Sacroiliitis, not elsewhere classified; M70.61 Trochanteric bursitis, right hip; M25.551 Pain in right hip; X50.1XXA Overexertion from prolonged static or awkward postures, initial encounter; I10 Essential (primary) hypertension; J45.909 Unspecified asthma, uncomplicated
CPT/HCPCS: 36415; 85025; 81025; 80053; 81001; 73502; J1885; J1100

== ENCOUNTER → 2019-09-23 | Outpatient (CLI) | payer BC ==
--- NOTE | 2019-09-23 11:41 | WOMENS IMAGING REPORT ---
EXAM DESCRIPTION: U/S ABDOMEN TOTAL IMAGES COMPLETED DATE/TIME: 09/23/2019 8:16 am REASON FOR STUDY: R10.84 GENERALIZED ABDOMINAL PAIN R10.84 GENERALIZED ABDOMINAL PAIN COMPARISON: 06/23/2017 TECHNIQUE: Dynamic and static grayscale images acquired of the abdomen and recorded on PACS. Lisao rebeca selected color Doppler and spectral images recorded. LIMITATIONS: None. FINDINGS: PANCREAS: No masses. Visualized pancreatic duct normal caliber. LIVER: Echotexture is coarse with increased echogenicity consistent with fatty infiltration. LIVER VASCULATURE: Normal directional flow of the main portal vein and hepatic veins. GALLBLADDER: No stones. Normal wall thickness. No pericholecystic fluid. ULTRASOUND-DETECTED ALVAREZ'S SIGN: Negative. INTRAHEPATIC DUCTS AND COMMON DUCT: CBD and intrahepatic ducts normal caliber. No filling defects. INFERIOR VENA CAVA: Normal flow. AORTA: No aneurysm. RIGHT KIDNEY: Normal size. Normal echogenicity. No solid or suspicious masses. No hydronephros is. No calcifications. LEFT KIDNEY: Normal size. Normal echogenicity. No solid or suspicious masses. No hydronephrosi s. No calcifications. SPLEEN:Normal size. No solid masses. PERITONEAL AND PLEURAL SPACES: No ascites or effusions. OTHER: No other significant finding. IMPRESSION: FATTY LIVER. NO OTHER SIGNIFICANT FINDING. TECHNICAL DOCUMENTATION: JOB ID: [id number] [employer]- All Rights Reserved Reading location - IP/workstation name: [email or web address]
== END ==
LOC: WI 07:32
PROVIDERS: ATTEND Family Medicine
DX: R10.84 Generalized abdominal pain (principal); K76.0 Fatty (change of) liver, not elsewhere classified
CPT/HCPCS: 76700

== ENCOUNTER → 2020-01-20 | Outpatient (CLI) | payer BC ==
--- NOTE | 2020-01-20 12:59 | RADIOLOGY REPORT (SQ) ---
EXAM DESCRIPTION: LUMBAR SPINE COMPLETE IMAGES COMPLETED DATE/TIME: 01/20/2020 10:45 am REASON FOR STUDY: RADICULOPATHY, LUMBAR REGION M54.16 RADICULOPATHY, LUMBAR REGION COMPARISON: Lumbar spine films 09/15/2006 NUMBER OF VIEWS: Five views including obliques. TECHNIQUE: AP, lateral, oblique, and sacral radiographic images acquired of the lumbar spine. LIMITATIONS: None. FINDINGS: MINERALIZATION: Normal. SEGMENTATION: Normal. No transitional anatomy. ALIGNMENT: Minimal anterolisthesis of L4 over L5 related to bulky bilateral facet arthropathy. No sp ondylolysis VERTEBRAE: Maintained height. No fracture or worrisome bone lesion. DISCS: Disc space loss of height at L4-5 and L5-S1 POSTERIOR ELEMENTS: Pedicles and facets are intact. No pars defect or posterior arch defects. Advan bassam lumbar facet arthropathy at L4-5 and L5-S1 HARDWARE: None in the spine. PARASPINAL SOFT TISSUES: Normal. PELVIS: SI joints intact OTHER: IUD in the uterus IMPRESSION: Degenerative changes at L4-5 and L5-S1 TECHNICAL DOCUMENTATION: JOB ID: [id number] 2010 [employer]- All Rights Reserved Reading location - IP/workstation name: [email or web address]
== END ==
LOC: OD 10:31
PROVIDERS: ATTEND Nurse Practitioner Family
DX: M54.16 Radiculopathy, lumbar region (principal)
CPT/HCPCS: 72110

== ENCOUNTER → 2020-02-18 | Outpatient (CLI) | payer BC ==
--- NOTE | 2020-02-18 10:55 | RADIOLOGY REPORT (SQ) ---
EXAM DESCRIPTION: CT CHEST WITHOUT IMAGES COMPLETED DATE/TIME: 02/18/2020 10:16 am REASON FOR STUDY: R91.8 OTHER NONSPECIFIC ABNORMAL FINDING OF LUNG FIELD R91.8 OTHER NONSPECIFIC AB NORMAL FINDING OF LUNG FIELD COMPARISON: None. TECHNIQUE: CT scan performed of the chest without intravenous contrast. Images reviewed with lung, soft tissue and bone windows. Reconstructed coronal and sagittal MPR images reviewed. All images st ored on PACS. All CT scanners at this facility use dose modulation, iterative reconstruction, and/or weight based d osing when appropriate to reduce radiation dose to as low as reasonably achievable (ALARA). [facility]: Dose Right [facility]: CareDose [facility]: Dose Right [facility]: Teradose 4D [facility]: Smart [employer] RADIATION DOSE: CT Rad equipment meets quality standard of care and radiation dose reduction techniq ues were employed. CTDIvol: 19.0 mGy. DLP: 789 mGy-cm. mGy. LIMITATIONS: No technical limitations. FINDINGS: LUNGS AND PLEURA: Right hilar masslike opacity measuring 4.6 x 3.9 cm (series 4, image 66) . There is relatively low internal attenuation (16 Hounsfield units). There is associated mass effe ct with displacement of the middle lobe and lower lobe rhonchi. Small additional nodular opacity elvira ng the anterior right middle lobe measuring 6 mm (series 4, image 71). No additional discrete nodule s or masses. No pleural effusion or pneumothorax. No focal consolidation. Increased AP diameter of the thorax. Eventration of the right hemidiaphragm and elevation of the left hemidiaphragm. HILAR AND MEDIASTINAL STRUCTURES: Right hilar lesion as above. No additional discrete mediastinal or left hilar adenopathy. HEART AND VASCULAR STRUCTURES: Normal heart size. No aneurysm. No pericardial effusion. No signifi cant coronary atherosclerosis. UPPER ABDOMEN: No acute findings. THYROID AND OTHER SOFT TISSUES: No masses. No adenopathy. BONES: No significant finding. Mild dextroconvex thoracic curvature. HARDWARE: No acute bony abnormality. No discrete lytic or blastic osseous lesions. OTHER: No other significant findings. IMPRESSION: 1. 4.6 x 3.9 cm masslike opacity within the right hilum with low internal attenuation ( 16 Hounsfield unit). Findings suggestive of bronchogenic cyst although other lesion not entirely exc luded. Bronchoscopy, contrasted CT, PET CT or comparison with priors if available should be consider ed. 2. No lymphadenopathy. 3. 6 mm right middle lobe pulmonary nodule. Follow-up as below. COMMENT: [place] CRITERIA FOR FOLLOW-UP OF PULMONARY NODULES Incidentally detected new nodules in persons 35 or older. HIGH RISK: History of smoking or other known risk factors. <6 mm single solid nodule: LOW RISK: no routine followup. HIGH RISK: optional CT 12 mo. TECHNICAL DOCUMENTATION: JOB ID: [id number] Quality ID # [id number]: Final reports with documentation of one or more dose reduction techniques (e.g., Au tomated exposure control, adjustment of the mA and/or kV according to patient size, use of iterative reconstruction technique) 2010 [employer]- All Rights Reserved Reading location - IP/workstation name: [email or web address]
== END ==
LOC: RAD 09:55
PROVIDERS: ATTEND Nurse Practitioner Family
DX: R91.8 Other nonspecific abnormal finding of lung field (principal)
CPT/HCPCS: 71250

== ENCOUNTER → 2020-04-13 | Outpatient (CLI) | payer BC ==
--- NOTE | 2020-04-13 14:18 | RADIOLOGY REPORT (SQ) ---
EXAM DESCRIPTION: PET CT SKULL/THIGH IMAGES COMPLETED DATE/TIME: 04/13/2020 1:59 pm REASON FOR STUDY: (R91.8)OTHER NONSPECIFIC ABNORMAL FINDING OF LUNG FIELD R91.8 OTHER NONSPECIFIC A BNORMAL FINDING OF LUNG FIELD COMPARISON: CT chest dated 02/18/2020 RADIONUCLIDE AND DOSE: 11.74 mCi F18 FDG The route of agent administration: Intravenous FASTING BLOOD SUGAR: 95 mg/dl CONTRAST TYPE AND DOSE: No CT contrast given. TECHNIQUE: Blood glucose level was verified. Above dose of FDG was injected intravenously. 2-D seg mented attenuation correction images were obtained from the base of the skull to the midthighs. Nonc ontrast CT images were obtained for attenuation correction and fusion with emission images. CT image s were performed without oral or intravenous contrast and are not sensitive for parenchymal lesions. A series of overlapping emission PET images were obtained. Images reviewed and manipulated at [facility] work station by the radiologist. Images stored on PACS. LIMITATIONS: None. FINDINGS: HEAD AND NECK: No areas of abnormal metabolic activity in the soft tissues of the head and neck. CHEST: Abnormal uptake in the right hilar mass. Highest SUV is just under 4. ABDOMEN AND PELVIS: No areas of abnormal metabolic activity in the abdomen or pelvis. Expected physi ologic activity is present in the genitourinary system and bowel. PROXIMAL LOWER EXTREMITIES: No areas of abnormal metabolic activity in the soft tissues of the lower extremities. BONES: No abnormal metabolic activity in the visualized skeleton. ADDITIONAL CT FINDINGS: No additional significant findings on the noncontrast CT images. OTHER: No other significant findings. IMPRESSION: Abnormal uptake in the right hilar mass. Recommend bronchoscopy for further assessment. SUVs range between 3.43.9. Neoplasm cannot be excluded. Infectious or inflammatory process remain s a possibility. No distant metastasis. TECHNICAL DOCUMENTATION: JOB ID: [id number] 2010 [employer]- All Rights Reserved Reading location - IP/workstation name: [email or web address]
== END ==
LOC: RAD 10:47
PROVIDERS: ATTEND Internal Medicine Pulmonary Disease
DX: R91.8 Other nonspecific abnormal finding of lung field (principal)
CPT/HCPCS: 78815; A9552